=== PATIENT | female | born 1980 | race African-American/Black ===

== ENCOUNTER 2024-02-15 18:24 | Emergency (ER) | payer MEDICAID ==
[~2024-02-15] VITALS: Ht 170.2 cm; Wt 91.0 kg
[2024-02-15 18:44] VITALS: BP 127/31; PULSE 84; RESP 16; TEMP 98.4; O2SAT 98
== END 2024-02-15 19:52 | disposition left against medical advice (07) ==
LOC: ER 18:37
DX: R05.9 Cough, unspecified (principal); R50.9 Fever, unspecified; Z53.21 Procedure and treatment not carried out due to patient leaving prior to being seen by health care provider
CPT/HCPCS: 99281

== ENCOUNTER 2024-05-29 09:14 | Emergency (ER) | payer MEDICAID ==
[~2024-05-29] VITALS: Ht 170.2 cm; Wt 91.0 kg
[2024-05-29 09:19] VITALS: BP 138/79; PULSE 93; RESP 18; TEMP 98.7; O2SAT 98
[2024-05-29 10:12] LABS: BASOPHILS % 0.5 % (0.0-2.0); EOSINOPHILS % 6.3 % (0.0-5.0); HEMATOCRIT. 36.2 % (36.0-48.0); HEMOGLOBIN. 11.8 g/dL (12.0-16.0); LYMPHOCYTES % 35.4 % (20.0-50.0); MEAN CORPUSCULAR HGB CONC 32.5 g/dL (31.0-37.0); MEAN CORPUSCULAR VOLUME 89.4 fL (81.0-99.0); MEAN PLATELET VOLUME 8.1 fl (7.4-10.4); MONOCYTES % 8.3 % (2.0-8.0); NEUTROPHILS % 49.5 % (40.0-76.0); PLATELET 319 x1000/uL (130-400); RED BLOOD CELL COUNT 4.05 mill/uL (4.2-5.4); WHITE BLOOD COUNT 4.9 x1000/uL (4.5-11.0)
[2024-05-29 10:41] LABS: CHLORIDE 109 mEq/L (98-107); POTASSIUM 3.9 mEq/L (3.5-5.1); SODIUM 139 mEq/L (136-145)
[2024-05-29 10:42] LABS: CALCIUM 8.7 mg/dL (8.7-10.4); CARBON DIOXIDE 26 mEq/L (21-32)
[2024-05-29 10:47] LABS: CREATININE 0.7 mg/dL (0.6-1.0); GLUCOSE 92 mg/dL (70-105); UREA NITROGEN BLOOD 10 mg/dL (9-23)
== END 2024-05-29 11:26 | disposition left against medical advice (07) ==
LOC: ER 09:41
DX: R05.9 Cough, unspecified (principal); F20.9 Schizophrenia, unspecified; F12.90 Cannabis use, unspecified, uncomplicated; Z85.9 Personal history of malignant neoplasm, unspecified
CPT/HCPCS: 36415; 71045; 80048; 83880; 85025; 99284